=== PATIENT | female | born 1960 | race Caucasian/White ===

== ENCOUNTER 2025-03-20 11:32 | Emergency (ER) | payer MEDICARE, SELFPAY ==
[2025-03-20] VITALS (7 sets, daily range): BP systolic 124–160; BP diastolic 82–97
[2025-03-20 13:14] LABS: ALT (SGPT) 18 U/L (0-35); AST (SGOT) 24 U/L (14-36); Albumin 4.4 g/dl (3.5-5.0); Alkaline Phosphatase 74 U/L (38-126); Blood Urea Nitrogen 12 mg/dl (7-17); Calcium 9.3 mg/dl (8.4-10.2); Carbon Dioxide 25 mmol/L (22-30); Chloride 105 mmol/L (98-107); Glucose 112 mg/dl (70-99); Potassium 4.2 mmol/L (3.5-5.1); Sodium 138 mmol/L (135-145); Total Protein 7.7 g/dl (6.3-8.2); eGFR > 60.00
[2025-03-20 13:38] LABS: Hematocrit 38.1 % (37.0-47.0); Hemoglobin 12.8 g/dL (12.0-16.0); Mean Corp Hgb Conc. 33.6 g/dL (33.0-37.0); Mean Corpuscular Volume 80.4 fL (81.0-99.0); Platelet Count 314 10^3/uL (130-400); Red Cell Dist. Width 12.5 % (11.5-14.5)
--- NOTE | 2025-03-20 16:08 | ED.GENMED ---
History of Present Illness
General
Chief Complaint: Heart Rate Problem
Source: patient
Exam Limitations: none
Time Seen by Provider: 03/20/25 16:07
Nursing documentation reviewed up to this point in time: agreed with
History of Present Illness
History of Present Illness:
Patient is a 64-year-old female who presents to the ER for evaluation. Patient had a cough for the past 3 months and has been worked up and followed by her medical assistant. She is prescribed a nasal spray along with albuterol and Symbicort. She is seem
to notice that when using inhalers her heart rate goes up. Today around 7 AM she felt very jittery after Symbicort. She took her heart rate and was 112 normally it is 87. She kept watching it and it was going as high as the 130s.
She had no associated shortness of breath with this episode this morning. In addition she has had no shortness of breath with the cough. She reports she is even worked out and not short of breath.
She has no associated chest pain. She denies any fever or chills.
She had a normal x-ray that was ordered by her medical assistant a month ago. She is scheduled for allergy testing.
She is a non-smoker.
She is on thyroid medicine.
She denies any lower extremity swelling no prior history of PE DVT. Of note she reports she traveled to [place] however in November 3 months ago.
Phy Exam
General Physical Exam
General Presentation: no apparent distress
General Skin: warm and dry
General Habitus: normal
General Mental: alert
General Hydration: appears well hydrated
Cardiovascular Exam
Cardiovascular Exam: regular rate/rhythm, no murmur and normal peripheral pulses
Pulmonary Exam
Pulmonary Exam: lungs clear and no respiratory distress
Neurological Exam
Neurological Exam: alert and oriented x3
Musculoskeletal Exam
Musculoskeletal Exam: full ROM
Skin Exam
Skin Exam: normal color and warm/dry
Psychiatric Exam
Psychiatric Exam: normal mood/affect
Course
Orders/Labs/Results
Orders:
Orders
03/20/25 11:59
Electrocardiogram (*1) Urgent
Reason for Study: Tachycardia
03/20/25 12:00
EKG- Treatment ONCE
03/20/25 12:17
Complete Blood Count/With Diff Urgent
Comprehensive Metabolic Panel Urgent
Manual Differential Urgent
TSH Reflex To Free T4 Urgent
03/20/25 16:22
Cardiac Monitoring- Treatment ONCE
IV Insert/Care/Rem.- Treatment PRN
0.9% Sodium Chloride 1000 ml [Nss] 1,000 ml IV BOLUS
03/20/25 16:28
D-Dimer Urgent
03/20/25 18:26
CT Chest PE Study Urgent
Comment:
Reason For Exam: elevated hr elevated d dimer cough
Abnormal Lab Results
03/20/25 03/20/25
12:17 16:28
MCV 80.4 L fL
(81.0-99.0)
Monocytes (Manual) 17 H %
(2-9)
D-Dimer 0.68 H ug/mlFEU
(0.00-0.50)
Glucose 112 H mg/dl
(70-99)
Total Bilirubin < 0.1 L mg/dl
(0.2-1.3)
03/20/25 12:17
03/20/25 12:17
Vital Signs
Initial and Last Documented VS:
Initial Vital Signs
Temp Pulse Resp BP Pulse Ox
98.3 F 114 20 143/88 98
03/20/25 11:53 03/20/25 11:53 03/20/25 11:53 03/20/25 11:53 03/20/25 11:53
Last Documented Vital Signs
Temp Pulse Resp BP Pulse Ox
98.3 F 100 12 135/84 99
03/20/25 11:53 03/20/25 18:30 03/20/25 18:30 03/20/25 18:00 03/20/25 18:30
Wage And Salary Specialist consulted with Physician
Wage And Salary Specialist consulted with physician?: Yes
Name of Physician Consulted: Sal
MDM/Problems Addressed
Differential Diagnosis Includes:
Not limited to bronchitis, tachycardia, less likely PE, dehydration
MDM/Problems Addressed:
As documented patient is a 64-year-old female who presented to the ER for evaluation. Patient is had a cough for the past several months. She presented today complaining of an elevated heart rate after she uses her inhalers. She is on Symbicort
as well as albuterol and a nasal spray. Cough is mostly at night. Patient also has thyroid issue and was concerned about an elevated heart rate. Patient presents awake alert no acute distress lungs are clear not hypoxic no wheezing initially
patient had an elevated heart of 114 however heart rate decreased. She was also given fluids. She denies any associated fever she is afebrile with a normal white count stable hemoglobin. Normal renal function. TSH normal. She does report that
her daughter had a history of DVT likely related to control with patient's elevated heart rate D-dimer was done and very minimally elevated CAT scan was done which was negative for PE but does show areas of mucoid impaction with associated
distal consolidative opacities as well as scattered tree-in-bud opacities within the lingula right middle lobe and right lower lobe findings are likely infectious may represent a chronic infection such as MAC. I did review this closely with
Yari of pulmonology, recommends outpatient follow-up nothing acute . Pulmonary does recommend Mucinex for 7 to 17 days and nebulized saline nebulizer. Patient has this already at home will recommend adding Mucinex and continuing her nebulized 3%
saline
Because her heart rate seems to be elevated with inhalers will have her stop this at this time
Chronic conditions affecting care:
history of parathyroid removed
*Radiology
Radiology exam reviewed: radiology read reviewed
*Pulse Oximetry
SaO2: 99
Oxygen Mode of Delivery: Room air
Patient hypoxic: no
*EKG
Comparison EKG: no comparison EKG present
Heart Rate: 97
Rate: normal
Rhythm: sinus
Ischemia: no ischemia
*Critical Care Note
Total Time (30-74mins, 75-104mins- exclusive of procedures): Not Applicable
Patient Management
Discussion with other providers: Counter Cutter (pulmonary Dr Greenberg )
ED Attending Note
-
Portions of this chart may have been created with voice recognition software.� Occasional wrong word or��sound alike� substitutions may have occurred due to the inherent limitations of voice recognition software.
Discharge Plan
Departure
Patient Disposition: Home (Routine Discharge)
Date of Disposition: 03/20/25
Time of Disposition: 19:52
Patient with high blood pressure during this ER visit?: Yes
Condition: Fair
Covid-19: Not Applicable
Discharge Problem:
elevated heart rate, Cough
Instructions: Cough in adults - ED (DC), BLOOD PRESSURE
Referrals:
Lizz Greenberg MD [Active, Pulmonary Medicine]
NONE,* [Family Provider, Internal Medicine]
Activity Restrictions/Additional Instructions:
As discussed you may stop Symbicort and albuterol for now however please start Mucinex. In addition please continue to use your saline nebulizer. Please follow-up with pulmonology for further evaluation of findings of your CAT scan regarding the
mucoid impaction.
return to the ER if any worsening of symptoms.
Please increase water intake
Interventions
Interventions:
*General Assessment Last Done: 03/20/25 16:18
*Neglect/Abuse Screening Last Done: 03/20/25 16:18
*ED COVID-19 Vaccine History Last Done: 03/20/25 16:18
*ED Influenza Vaccine History Last Done: 03/20/25 16:18
*Risk Screen - Suicide (C-SSRS) Last Done: 03/20/25 11:53
ED- Cardiac Assessment Last Done: 03/20/25 16:18
ED- Pulmonary Assessment Last Done: 03/20/25 16:18
Discharge Date and Time
Print Language: ESTONIAN
[2025-03-20 16:11] LABS: Absolute Neutrophils -Man Diff 2.0 10^3/uL (1.4-6.5); Normal RBC Morphology Yes; Platelets Checked Yes; Total Cells Counted 100
[2025-03-20] MEDS: NSS 1000 IV (16:28)
[2025-03-20 16:50] LABS: D-Dimer 0.68 ug/mlFEU (0.00-0.50)
== END 2025-03-20 20:17 | disposition home or self-care (01) ==
LOC: EMR 11:32
PROVIDERS: Emergency Medicine; Nurse Practitioner; EMERGENCY PHYSICIAN Emergency Medicine
DX: R05.9 Cough, unspecified (principal); R00.8 Other abnormalities of heart beat; R79.1 Abnormal coagulation profile
CPT/HCPCS: 99284; 96360; 71275; 80053; 84443; 85025; 85379; 93005; Q9967